=== PATIENT | female | born 1960 | race Caucasian/White ===

== ENCOUNTER 2017-10-14 20:41 | Inpatient (IN) | payer MEDICAID, OTHER ==
[~2017-10-14] VITALS: Ht 172.7 cm; Wt 107.0 kg
[2017-10-14] MEDS ORDERED: Morphine Sulfate 4mg/ml Inj IVP ONE (21:00)
[2017-10-14] MEDS ORDERED: Methocarbamol 750mg tab ORAL ONE (21:00)
--- NOTE | 2017-10-14 21:05 | Emergency Room Report ---
History of Present Illness General Chief Complaint: Lower Extremity Injury Source: Patient, EMS Present Illness HPI 57-year-old female presenting with left hip and left knee pain after fall Patient states she has had chronic left hip pain since July, states that she fell, went to [facility] who performed many tests. She was found to have incidental lesions in her bone. She is currently being worked up for multiple myeloma by her primary care doctor. Has not yet seen an oncologist. States that she has had chronic pain for the last couple weeks, she has given herself crutches due to the pain. She has been taking Motrin and Tylenol. States that today she slipped and fell on her buttocks. Now complaining of more pain. EMS got there palpation standing up but unable to bear weight on her left side. She got morphine and Zofran by EMS without any relief. Denies any numbness or tingling of her extremities, no saddle anesthesia, no urinary retention Allergies: Coded Allergies: No Known Allergies (Unverified , 10/14/17) Patient History Past Medical History: see triage record Past Surgical History: none Pertinent Family History: none Last Menstrual Period: n/a Reviewed Nursing Documentation: PMH: Agreed, PSxH: Agreed Nursing Documentation-PMH Past Medical History: No Stated History Review of Systems All Other Systems: negative except mentioned in HPI Physical Exam Vital Signs Date Time Temp Pulse Resp B/P (MAP) Pulse Ox O2 Delivery O2 Flow Rate FiO2 10/14/17 20:33 100 16 180/99 99 Room Air Sp02 EP Interpretation: reviewed, normal General Appearance: alert, GCS 15, non-toxic, mild distress Head: normocephalic, atraumatic Eyes: bilateral eye normal inspection, bilateral eye PERRL, bilateral eye EOMI ENT: normal ENT inspection, normal pharynx, normal voice, moist mucus membranes Neck: normal inspection, full range of motion, supple Respiratory: normal inspection, lungs clear, normal breath sounds, no respiratory distress, no retraction, no wheezing, speaking full sentences, chest symmetrical Cardiovascular #1: normal inspection, regular rate, rhythm, normal capillary refill Cardiovascular #2: 2+ radial (R), 2+ radial (L) Gastrointestinal: normal inspection, non tender, soft, non-distended, no guarding Musculoskeletal: other - L knee with no effusion, TTP, full range of motion, L hip TTP lateral aspect, limited ROM 2/2to pain. no limb rotation or shortening Neurologic: normal inspection, alert, oriented x3, responsive, motor strength/ tone normal, sensory intact, speech normal Psychiatric: normal inspection, judgement/insight normal, memory normal Skin: normal inspection, normal color, no rash, warm/dry, well hydrated, normal turgor Medical Decision Making Diagnostic Impression: Primary Impression: Left displaced femoral neck fracture Additional Impression: Intractable pain ER Course 57-year-old female with left hip pain, has been going on for an 3 months, exacerbation today after she fell history of multiple myeloma DDX: Contusion versus sciatica vs. fracture Plan: Pain control XR ER course: Patient reports improvement of pain Hip XR and CT showing displaced femoral neck fx - also concern for pathologic fx given multiple myeloma pulses intact notified orthopedics Dr Gudino Disposition: Patient is to be admitted to med surg D/W hospitalist Dr Soares Please note that this Emergency Department Report was dictated using [employer] plant maintenance mechanic technology software, occasionally this can lead to erroneous entry secondary to interpretation by the dictation equipment. Xray ordered: Left hip 3 view Indication: Pain EP Interpretation: Yes Interpretation: femoral neck fx Impression: femoral neck fx Electronically signed by Rich Stallings MD Xray: Left knee 3 view Indication: Pain EP Interpretation: Yes Interpretation: No dislocation, no soft tissue swelling, no fractures Impression: No acute disease Electronically signed by Rich Stallings MD Laboratory Tests Test 10/15/17 00:11 White Blood Count 15.0 K/UL (4.8-10.8) H Red Blood Count 3.99 M/UL (4.20-5.40) L Hemoglobin 12.8 G/DL (12.0-16.0) Hematocrit 36.5 % (37.0-47.0) L Mean Corpuscular Volume 92 FL (80-99) Mean Corpuscular Hemoglobin 32.0 PG (27.0-31.0) H Mean Corpuscular Hemoglobin Concent 34.9 G/DL (32.0-36.0) Red Cell Distribution Width 11.4 % (11.6-14.8) L Platelet Count 323 K/UL (150-450) Mean Platelet Volume 6.4 FL (6.5-10.1) L Neutrophils (%) (Auto) % (45.0-75.0) Lymphocytes (%) (Auto) % (20.0-45.0) Monocytes (%) (Auto) % (1.0-10.0) Eosinophils (%) (Auto) % (0.0-3.0) Basophils (%) (Auto) % (0.0-2.0) Prothrombin Time 10.2 SEC (9.30-11.50) Prothrombin Time INR 1.0 (0.9-1.1) PTT 25 SEC (23-33) Sodium Level 138 MMOL/L (136-145) Potassium Level 4.2 MMOL/L (3.5-5.1) Chloride Level 102 MMOL/L (98-107) Carbon Dioxide Level 23 MMOL/L (21-32) Anion Gap 13 mmol/L (5-15) Blood Urea Nitrogen 35 mg/dL (7-18) H Creatinine 1.4 MG/DL (0.55-1.30) H Estimate Glomerular Filtration Rate 39.0 mL/min (>60) Glucose Level 122 MG/DL (74-106) H Calcium Level 9.6 MG/DL (8.5-10.1) Total Bilirubin 0.4 MG/DL (0.2-1.0) Aspartate Amino Transferase (AST) 36 U/L (15-37) Alanine Aminotransferase (ALT) 41 U/L (12-78) Alkaline Phosphatase 93 U/L (46-116) Total Protein 8.3 G/DL (6.4-8.2) H Albumin 4.1 G/DL (3.4-5.0) Globulin 4.2 g/dL Albumin/Globulin Ratio 1.0 (1.0-2.7) CT/MRI/US Diagnostic Results CT/MRI/US Diagnostic Results : Imaging Test Ordered: CT hip Impression CT LEFT HIP: Displaced/angulated left femoral neck subcapital fracture concerning for pathologic fracture. Left femoral head/neck lucency concerning for neoplasm. Other scattered osseous lucencies, cannot exclude neoplasm/metastasis. Last Vital Signs Date Time Temp Pulse Resp B/P (MAP) Pulse Ox O2 Delivery O2 Flow Rate FiO2 10/14/17 20:33 100 16 180/99 99 Room Air Disposition: ADMITTED INPATIENT Condition: Serious Patient Instructions: Hip Pain Rich Stallings M.D. Oct 14, 2017 21:05
[2017-10-15] VITALS (7 sets, daily range): BP systolic 120–165; BP diastolic 65–83
[2017-10-15] MEDS ORDERED: Morphine Sulfate 4mg/ml Inj IVP ONE ×2 (00:15→00:45)
[2017-10-15] MEDS ORDERED: NORCO 5-325 TA1 EACH ORAL (00:34)
[2017-10-15] MEDS ORDERED: IBUPROFEN600 MG ORAL (00:34)
[2017-10-15] MEDS ORDERED: Ketorolac 30mg Inj IV ONE (00:45)
[2017-10-15 00:47] LABS: HEMATOCRIT 36.5 % (37.0-47.0); HEMOGLOBIN 12.8 G/DL (12.0-16.0); MEAN CORPUSCULAR VOLUME 92 FL (80-99); PLATELET COUNT 323 K/UL (150-450); RED BLOOD COUNT 3.99 M/UL (4.20-5.40); RED CELL DISTRIBUTION WIDTH 11.4 % (11.6-14.8)
[2017-10-15 01:00] LABS: ANION GAP 13 mmol/L (5-15); BLOOD UREA NITROGEN 35 mg/dL (7-18); CALCIUM 9.6 MG/DL (8.5-10.1); CARBON DIOXIDE 23 MMOL/L (21-32); CHLORIDE 102 MMOL/L (98-107); CREATININE 1.4 MG/DL (0.55-1.30); POTASSIUM 4.2 MMOL/L (3.5-5.1); SODIUM 138 MMOL/L (136-145)
[2017-10-15 01:05] LABS: ALANINE AMINOTRANSFERASE 41 U/L (12-78); ALBUMIN 4.1 G/DL (3.4-5.0); ALKALINE PHOSPHATASE 93 U/L (46-116); ASPARTATE AMINO TRANSFERASE 36 U/L (15-37); BILIRUBIN,TOTAL 0.4 MG/DL (0.2-1.0)
[2017-10-15 08:16] LABS: HEMATOCRIT 37.4 % (37.0-47.0); HEMOGLOBIN 12.3 G/DL (12.0-16.0); MEAN CORPUSCULAR VOLUME 93 FL (80-99); PLATELET COUNT 318 K/UL (150-450); RED BLOOD COUNT 4.01 M/UL (4.20-5.40); RED CELL DISTRIBUTION WIDTH 11.8 % (11.6-14.8); WHITE BLOOD COUNT 11.5 K/UL (4.8-10.8)
[2017-10-15 09:03] LABS: % IRON SATURATION 19 % (15-50); IRON 49 ug/dL (50-175); TOTAL IRON BINDING CAPACITY 259 ug/dL (250-450)
[2017-10-15 09:30] LABS: ALANINE AMINOTRANSFERASE 39 U/L (12-78); ALBUMIN/GLOBULIN RATIO 1.2 (1.0-2.7); ALKALINE PHOSPHATASE 102 U/L (46-116); ANION GAP 10 mmol/L (5-15); ASPARTATE AMINO TRANSFERASE 28 U/L (15-37); BILIRUBIN,TOTAL 0.3 MG/DL (0.2-1.0); BLOOD UREA NITROGEN 30 mg/dL (7-18); CALCIUM 8.8 MG/DL (8.5-10.1); CARBON DIOXIDE 25 MMOL/L (21-32); CHLORIDE 105 MMOL/L (98-107); CREATININE 1.1 MG/DL (0.55-1.30); POTASSIUM 4.1 MMOL/L (3.5-5.1); SODIUM 140 MMOL/L (136-145)
--- NOTE | 2017-10-15 09:44 | Diagnostic Imaging Report ---
Indication: Hip pain Technique: continuous helical imaging in the transaxial plane was performed from the iliac crests to the pubic symphysis with attention to the left hip. Coronal 2-D reformatted images were also generated. Study obtained in a Siemens Sensation [address] total DLP: 1988 mGycm CTD/vol: 0.25, 29.19 mGy Comparison: None Findings: There is abnormal lytic focus within the left femoral neck associated with pathologic intracapsular fracture of the femoral neck. Fracture is impacted. Bones are diffusely osteopenic as well. There is soft tissue swelling. IMPRESSION: Acute left femoral neck fracture. The fracture appears pathologic as there is a irregular lytic lesion involving the femoral head and neck. [facility] has communicated the preliminary results to the Emergency Department. Their findings are largely concordant with this report. The CT scanner at [facility] is accredited by the [employer] and the scans are performed using dose optimization techniques as appropriate to a performed exam including Automatic Exposure control.
[2017-10-15] MEDS: Heparin 5000 units/ml inj SUBQ SCH ×2 (09:55→21:00)
--- NOTE | 2017-10-15 10:52 | Diagnostic Imaging Report ---
Indication: pain Findings: Single AP view of the pelvis was performed. There is an acute fracture involving the left femoral neck. This is further evaluated on CT. Bones are osteopenic. IMPRESSION: Current study limited as obtained. Acute left hip fracture
--- NOTE | 2017-10-15 11:30 | Diagnostic Imaging Report ---
Indication: Pain 3 views of the left knee were obtained. Findings: Bones are osteopenic. No obvious fracture or malalignment identified. No definite joint effusion is identified. IMPRESSION: No acute injury identified.
--- NOTE | 2017-10-15 11:31 | Diagnostic Imaging Report ---
Indications: hip pain Findings: Two views of the left hip were obtained. There is an acute fracture of the left femoral neck with slight impaction. The femoral neck is abnormal in appearance with irregular lucency noted. There is also some lucency and abnormal mineralization of the femoral head itself. Findings suspicious for a pathologic fracture. IMPRESSION: Acute left femoral neck fracture likely pathologic. Underlying irregular lucency is suspicious for metastatic neoplasm or other infiltrative process.
--- NOTE | 2017-10-15 17:51 | History & Physical ---
History and Physical History & Physicial JOB ID: [id number] Eros Rodrigues Oct 15, 2017 17:51
--- NOTE | 2017-10-15 18:51 | Cardiac Electrophysiology PN ---
Subjective Subjective [id number]. No HTN, DM, PR or CAD or CHF. ECG Normal. OK to proceed with ORIF. Objective Last 24 Hour Vital Signs Date Time Temp Pulse Resp B/P (MAP) Pulse Ox O2 Delivery O2 Flow Rate FiO2 10/15/17 16:00 98.7 80 18 120/65 97 10/15/17 12:01 97.0 76 18 139/71 98 Room Air 10/15/17 12:00 97.0 76 18 139/71 98 10/15/17 04:00 97.8 86 19 147/73 94 10/15/17 01:31 98.3 77 18 164/83 97 Room Air 10/15/17 01:25 98.3 77 18 164/83 97 Room Air 10/15/17 00:25 98.3 80 18 165/83 95 Room Air 10/14/17 20:33 100 16 180/99 99 Room Air Intake and Output 10/14/17 10/15/17 19:00 07:00 Intake Total 450 ml Balance 450 ml Intake Oral 0 ml IV Total 450 ml Laboratory Tests Test 10/15/17 00:11 10/15/17 07:50 White Blood Count 15.0 K/UL (4.8-10.8) H 11.5 K/UL (4.8-10.8) H Red Blood Count 3.99 M/UL (4.20-5.40) L 4.01 M/UL (4.20-5.40) L Hemoglobin 12.8 G/DL (12.0-16.0) 12.3 G/DL (12.0-16.0) Hematocrit 36.5 % (37.0-47.0) L 37.4 % (37.0-47.0) Mean Corpuscular Volume 92 FL (80-99) 93 FL (80-99) Mean Corpuscular Hemoglobin 32.0 PG (27.0-31.0) H 30.8 PG (27.0-31.0) Mean Corpuscular Hemoglobin Concent 34.9 G/DL (32.0-36.0) 33.0 G/DL (32.0-36.0) Red Cell Distribution Width 11.4 % (11.6-14.8) L 11.8 % (11.6-14.8) Platelet Count 323 K/UL (150-450) 318 K/UL (150-450) Mean Platelet Volume 6.4 FL (6.5-10.1) L 6.8 FL (6.5-10.1) Neutrophils (%) (Auto) % (45.0-75.0) % (45.0-75.0) Lymphocytes (%) (Auto) % (20.0-45.0) % (20.0-45.0) Monocytes (%) (Auto) % (1.0-10.0) % (1.0-10.0) Eosinophils (%) (Auto) % (0.0-3.0) % (0.0-3.0) Basophils (%) (Auto) % (0.0-2.0) % (0.0-2.0) Prothrombin Time 10.2 SEC (9.30-11.50) 10.4 SEC (9.30-11.50) Prothromb Time International Ratio 1.0 (0.9-1.1) 1.0 (0.9-1.1) Activated Partial Thromboplast Time 25 SEC (23-33) Sodium Level 138 MMOL/L (136-145) 140 MMOL/L (136-145) Potassium Level 4.2 MMOL/L (3.5-5.1) 4.1 MMOL/L (3.5-5.1) Chloride Level 102 MMOL/L (98-107) 105 MMOL/L (98-107) Carbon Dioxide Level 23 MMOL/L (21-32) 25 MMOL/L (21-32) Anion Gap 13 mmol/L (5-15) 10 mmol/L (5-15) Blood Urea Nitrogen 35 mg/dL (7-18) H 30 mg/dL (7-18) H Creatinine 1.4 MG/DL (0.55-1.30) H 1.1 MG/DL (0.55-1.30) Estimat Glomerular Filtration Rate 39.0 mL/min (>60) 51.6 mL/min (>60) Glucose Level 122 MG/DL (74-106) H 128 MG/DL (74-106) H Calcium Level 9.6 MG/DL (8.5-10.1) 8.8 MG/DL (8.5-10.1) Total Bilirubin 0.4 MG/DL (0.2-1.0) 0.3 MG/DL (0.2-1.0) Aspartate Amino Transf (AST/SGOT) 36 U/L (15-37) 28 U/L (15-37) Alanine Aminotransferase (ALT/SGPT) 41 U/L (12-78) 39 U/L (12-78) Alkaline Phosphatase 93 U/L (46-116) 102 U/L (46-116) Total Protein 8.3 G/DL (6.4-8.2) H 7.4 G/DL (6.4-8.2) Albumin 4.1 G/DL (3.4-5.0) 4.0 G/DL (3.4-5.0) Globulin 4.2 g/dL 3.4 g/dL Albumin/Globulin Ratio 1.0 (1.0-2.7) Pending Differential Total Cells Counted 100 Neutrophils % (Manual) 83 % (45-75) H Lymphocytes % (Manual) 8 % (20-45) L Monocytes % (Manual) 9 % (1-10) Eosinophils % (Manual) 0 % (0-3) Basophils % (Manual) 0 % (0-2) Band Neutrophils 0 % (0-8) Platelet Estimate Adequate Platelet Morphology Normal Red Blood Cell Morphology Normal Reticulocyte Count 0.7 % (0.0-2.0) Uric Acid 5.7 MG/DL (2.6-7.2) Iron Level 49 ug/dL (50-175) L Total Iron Binding Capacity 259 ug/dL (250-450) Percent Iron Saturation 19 % (15-50) Unsaturated Iron Binding 210 ug/dL (112-346) Total Protein (PEP) Pending Albumin (PEP) Pending Globulin (PEP) Pending [id number] Pending [id number] Pending Beta Globulins Pending Beta Gamma Globulin Pending PEP Abnormal Protein Bands Pending Protein Electrophoresis Interpret Pending Folate 11.9 NG/ML (8.6-58.9) Immunoglobulin G Pending Immunoglobulin A Pending Immunoglobulin M Pending AMBER BRUCE Oct 15, 2017 18:50
[2017-10-16] VITALS (15 sets, daily range): BP systolic 111–149; BP diastolic 62–90
--- NOTE | 2017-10-16 04:30 | Consultation ---
DATE OF CONSULTATION: 10/15/2017 CARDIOLOGY CONSULTATION CONSULTING PHYSICIAN: Jesus Yu M.D. REFERRING PHYSICIAN: Eros Rodrigues M.D. REASON FOR CONSULTATION: Preoperative clearance. HISTORY OF PRESENT ILLNESS: The patient is a 57-year-old lady, who presents to the emergency room with left hip and left knee pain after a fall. The patient has had chronic left hip pain since July, however, she fell, went to [facility] and performed many tests. The patient is currently being worked up for multiple myeloma by her primary care physician, but has has not seen an oncologist. She has been taking Motrin and Tylenol. The patient slipped and fell on her buttocks complaining of severe pain. The patient was brought in by paramedics and was found to have left displaced femoral neck fracture. The patient was admitted and a Cardiology consultation was requested for further evaluation and preoperative clearance. PAST MEDICAL HISTORY: As mentioned above. SOCIAL HISTORY: Lives at home. Does not smoke or drink alcohol. FAMILY HISTORY: Noncontributory. REVIEW OF SYSTEMS: Review of systems was performed and was negative other than what was mentioned in the history of present illness. PHYSICAL EXAMINATION: VITAL SIGNS: Blood pressure is 120/65, pulse is 80, respirations 18, and she is afebrile. HEAD AND NECK: Showed no JVD. LUNGS: Clear. CARDIOVASCULAR: Shows regular S1 and S2 with no gallop. ABDOMEN: Soft. EXTREMITIES: No pitting edema. LABORATORY DATA: White count 11.5, hemoglobin 12.2, hematocrit 37.4, and platelet count of 318. Sodium 140, potassium 4.1, BUN of 30, creatine 1.1, and glucose of 128. INR is 1. ASSESSMENT AND PLAN: Status post fall and hip fracture without syncope. This could be fracture as the patient has possibly multiple myeloma. Further evaluation by Dr. Rodrigues. However, the patient denies any prior myocardial infarction or coronary artery disease or congestive heart failure. The EKG is completely normal. We will order an echocardiogram, however, clinically, the patient is stable from cardiac standpoint to proceed with hip surgery. Thank you very much, Dr. Rodrigues, for allowing me to participate in the care of this patient. Please do not hesitate to contact me for any questions regarding my evaluation. Jesus Yu M.D. DR: Petar JOB#: [id number] CC:
[2017-10-16] MEDS ORDERED: Morphine Sulfate PF 10 ML ONE (07:41)
[2017-10-16] MEDS ORDERED: Bupivacaine 0.25% Inj 30ml INJ ONE (07:42)
[2017-10-16] MEDS ORDERED: Bacitracin 50000 Units Vial ONE (07:42)
[2017-10-16] MEDS ORDERED: NeoSporin Gu Irrig 1ml Amp IRRIG ONE (07:42)
[2017-10-16] MEDS ORDERED: Kenalog-40 1ml Vial ONE (07:42)
[2017-10-16] MEDS: Heparin 5000 units/ml inj SUBQ SCH (08:54)
[2017-10-16] MEDS ORDERED: Tranexamic Acid 500 MG in NS 55 ML IVPB ONE (09:30)
--- NOTE | 2017-10-16 09:38 | Pre-Procedure Note/Attestation ---
Pre-Procedure Note/Attestation Complete Prior to Procedure Planned Procedure: left Procedure Narrative: Left hip hemiarthoplasty Indications for Procedure Pre-Operative Diagnosis: Left hip pathologic femoral neck fracture Attestation I attest that I discussed the nature of the procedure; its benefits; risks and complications; and alternatives (and the risks and benefits of such alternatives ), prior to the procedure, with the patient (or the patient's legal pharmaceutical sales representative). I attest that, if there was a reasonable possibility of needing a blood transfusion, the patient (or the patient's legal pharmaceutical sales representative) was given the [facility] standardized written summary, pursuant to the Saturnino Moe Blood Safety Act ([place] Health and Safety Code # 1645, as amended). I attest that I re-evaluated the patient just prior to the surgery and that there has been no change in the patient's H&P, except as documented below: ALFREDO TORRES Oct 16, 2017 09:38
[2017-10-16] MEDS: Depo-Medrol 40mg Inj IARTIC ONE ×2 (09:44→13:11)
[2017-10-16] MEDS ORDERED: oxyCODONE 5mg IR tab ORAL PRN (10:00)
[2017-10-16] MEDS ORDERED: Morphine Sulfate 4mg/ml Inj IVP PRN (10:00)
[2017-10-16] MEDS ORDERED: Sterile Water Irrig 1000ml IRRIG ONE (10:15)
[2017-10-16] MEDS ORDERED: Ketorolac 30mg Inj ONE (10:15)
[2017-10-16] MEDS ORDERED: LR 1000ml ONE (10:15)
[2017-10-16] MEDS ORDERED: Glycopyrrolate 0.2mg/ml 1ml Vial ONE (10:15)
[2017-10-16] MEDS ORDERED: Propofol 200mg/20ml IV ONE (10:15)
[2017-10-16] MEDS ORDERED: Midazolam 2mg/2ml Inj ONE (10:15)
[2017-10-16] MEDS ORDERED: fentaNYL 100 mcg/2 mL IV ONE (10:15)
[2017-10-16] MEDS ORDERED: Zemuron 50mg/5ml Inj IV ONE (10:15)
[2017-10-16] MEDS ORDERED: NS Irrig 1000ml ONE (10:15)
[2017-10-16] MEDS ORDERED: Metoclopramide 10mg/2ml Inj ONE (10:15)
[2017-10-16] MEDS ORDERED: Succinylcholine 20mg/ml 10ml vial ONE (10:15)
[2017-10-16] MEDS ORDERED: LR 1000ml 1,000 ML IVLG SCH (11:33)
--- NOTE | 2017-10-16 11:37 | Anethesia Preoperative Eval ---
Anesthesia Pre-op PMH/ROS General Date of Evaluation: Oct 16, 2017 Time of Evaluation: 10:15 Anesthesiologist: Lam ASA Score: ASA 2 Mallampati Score Class I : Soft palate, uvula, fauces, pillars visible Class II: Soft palate, uvula, fauces visible Class III: Soft palate, base of uvula visible Class IV: Only hard plate visible Mallampati Classification: Class I Surgeon: Shahab Diagnosis: Left Femoral nek fracture Surgical Procedure: Left Hemirthroplasty Anesthesia History: none Family History: no anesthesia problems Allergies: Coded Allergies: No Known Allergies (Unverified , 10/14/17) Medications: see eMAR Anesthesia Pre-op Phys. Exam Physician Exam Last Vital Signs Date Time Temp Pulse Resp B/P (MAP) Pulse Ox O2 Delivery O2 Flow Rate FiO2 10/16/17 08:28 97.8 81 18 111/62 100 Room Air 10/16/17 01:17 2.0 Constitutional: NAD Neurologic: CN 2-12 intact Cardiovascular: RRR Respiratory: CTA Gastrointestinal: S/NT/ND Airway Exam Mallampati Score: Class II MO: full ROM: full Teeth: intact Anesthesia Pre-op A/P Risk Assessment & Plan Plan: GA Status Change Before Surgery: No Pre-Antibiotics Drug: Ancef Given Within 1 Hr of Incision: Yes Time Given: 11:00 Angel Fritz M.D. Oct 16, 2017 11:37
--- NOTE | 2017-10-16 11:39 | 48 Hour Post Anesthesia Eval ---
Post Anesthesia Evaluation Procedure: Left Hemiarthroplasty Date of Evaluation: Oct 18, 2017 Time of Evaluation: 10:00 Blood Pressure Systolic: 121 0: 76 Pulse Rate: 96 Respiratory Rate: 18 Temperature (Fahrenheit): 98.2 O2 Sat by Pulse Oximetry: 96 Airway: patent Nausea: No Vomiting: No If pain is > 6 Comment: 0 Hydration Status: adequate Mental Status/LOC: patient returned to baseline Follow-up care needed: patient intructions given Angel Fritz M.D. Oct 16, 2017 11:39
--- NOTE | 2017-10-16 11:42 | Immediate Post-Op Evaluation ---
Immediate Post-Op Evalulation Immediate Post-Op Evalulation Procedure: Left Hemiarthroplasty Date of Evaluation: Oct 16, 2017 Time of Evaluation: 14:00 IV Fluids: 1000 Blood Products: 0 Estimated Blood Loss: 200 Urinary Output: 1000 Blood Pressure Systolic: 121 Blood Pressure Diastolic: 63 Pulse Rate: 96 Respiratory Rate: 21 O2 Sat by Pulse Oximetry: 96 Temperature (Fahrenheit): 97.5 Pain Score (1-10): 0 Nausea: No Vomiting: No Patient Status: awake, patent, extubated Hydration Status: adequate Drug: Ancef Given Within 1 Hr of Incision: Yes Time Given: 11:00 Angel Fritz M.D. Oct 16, 2017 11:42
[2017-10-16] MEDS ORDERED: fentaNYL 100 mcg/2 mL IV PRN (11:45)
[2017-10-16] MEDS ORDERED: DiphenhydrAMINE 50mg/ml Inj IVP PRN (11:45)
[2017-10-16] MEDS ORDERED: Midazolam 2mg/2ml Inj IVP PRN (11:45)
[2017-10-16] MEDS ORDERED: Metoclopramide 10mg/2ml Inj IVP PRN (11:45)
[2017-10-16] MEDS ORDERED: Morphine Sulfate 2mg/ml Inj IVP PRN (11:45)
--- NOTE | 2017-10-16 12:58 | Cardiac Electrophysiology PN ---
Assessment/Plan Assessment/Plan 1. Status post fall and hip fracture without syncope. This could be pathologic fracture as the patient has possibly multiple myeloma. Patient denies any prior myocardial infarction or coronary artery disease or congestive heart failure. The EKG is completely normal. Clinically, the patient is stable from cardiac standpoint to proceed with hip surgery. 2. Possible MM. Follow uop Dr Soares. Subjective Subjective Comfortable scheduled for ORIF today.. Objective Last 24 Hour Vital Signs Date Time Temp Pulse Resp B/P (MAP) Pulse Ox O2 Delivery O2 Flow Rate FiO2 10/16/17 11:42 96 21 96 10/16/17 11:39 96 18 96 10/16/17 08:28 97.8 81 18 111/62 100 Room Air 10/16/17 01:17 97.6 86 18 112/68 97 Nasal Cannula 2.0 10/15/17 20:08 97.5 77 18 120/70 96 Nasal Cannula 2.0 10/15/17 16:00 98.7 80 18 120/65 97 Intake and Output 10/15/17 10/16/17 19:00 07:00 Intake Total 1650 ml 1800 ml Output Total 550 ml Balance 1650 ml 1250 ml Intake Oral 150 ml IV Total 1500 ml 1800 ml Output Urine Total 550 ml # Voids 2 2 Objective HEAD AND NECK: Showed no JVD. LUNGS: Clear. CARDIOVASCULAR: Shows regular S1 and S2 with no gallop. ABDOMEN: Soft. EXTREMITIES: No pitting edema. AMBER BRUCE Oct 16, 2017 12:58
[2017-10-16] MEDS ORDERED: Duramorph PF 10mg/10ml amp EPIDUR ONE (13:11)
[2017-10-16] MEDS: Hydromorphone 0.5mg/0.5ml inj IVP PRN ×2 (14:06→14:25)
--- NOTE | 2017-10-16 14:45 | Consultation ---
DATE OF CONSULTATION: 10/15/2017 ORTHOPEDIC CONSULTATION REQUESTING PHYSICIAN: Eros Rodrigues M.D. DIAGNOSIS: Left pathologic femoral neck fracture. BACKGROUND: The patient is a 57-year-old woman who has had left hip pain since July. She has had progressive symptoms and an extensive workup. Reportedly, she is being evaluated for multiple myeloma and has an Oncology appointment pending. The day prior to admission, she twisted and felt a snapping pain in the left hip. The left hip pain since July was intensified and she was not able to walk. She was brought to the hospital. ALLERGIES: She has no known drug allergies. REVIEW OF SYSTEMS: A 14-point review of systems was negative. PHYSICAL EXAMINATION: GENERAL: She is in moderate distress because of left hip pain. No provocative testing was performed in the left lower extremity. Distal neurovascular examination of the left lower extremity is intact. RADIOGRAPHS: AP pelvis and left hip along with CT scan reveals a displaced pathologic fracture through the femoral neck. There are multiple lesions throughout the femoral neck and femoral head. There were no large lesions of the shaft and readily identified. ASSESSMENT AND PLAN: The patient is a 57-year-old woman with presumptive multiple myeloma with metastatic disease to the left hip. I have discussed the pathologic femoral neck fracture. I have recommended hip hemiarthroplasty. She understands all associated risks. We will proceed to the operating room when available. Thank you for the opportunity to consult. Angel Gudino M.D. DR: CHARLOTTE JOB#: [id number] CC:
[2017-10-16] MEDS: D5 1/2NS w/KCl 20mEq 1,000 ML IV SCH (15:57)
[2017-10-16] MEDS: ceFAZolin sod 2 GM in D5W 110 ML IV SCH ×2 (15:58→21:49)
[2017-10-16] MEDS: Docusate 100mg cap ORAL SCH (18:25)
--- NOTE | 2017-10-16 19:38 | General Progress Note ---
Assessment/Plan Assessment/Plan # Multiple myeloma --> requires outpatient followyp, requires treatment, patients can generally do well especially since she is treatment benign --> f/u with oncology, likely will start either RV or RVD (revlimid - velcade - dexamethason) or a similar combination to induce a deep hematologicaly/ cytogenetic/molecular response --> will need zometa as well as outpatient given bony metastasis --> spep is pending and immunoglobulins are generally wnl # Pathologic left hip fracture s/p repair # Anemia of chronic disease, mild # HTN Subjective Constitutional: Denies: no symptoms, chills, diaphoresis, fever, malaise, weakness, other Respiratory: Denies: no symptoms, cough, orthopnea, shortness of breath, SOB with excertion, SOB at rest, sputum, stridor, wheezing, other Gastrointestinal/Abdominal: Denies: no symptoms, abdomen distended, abdominal pain, black stools, tarry stools, blood in stool, constipated, diarrhea, difficulty swallowing, nausea, poor appetite, poor fluid intake, rectal bleeding , vomiting, other Genitourinary: Denies: no symptoms, burning, discharge, frequency, flank pain, hematuria, incontinence, pain, urgency, other Neurologic/Psychiatric: Denies: no symptoms, anxiety, depressed, emotional problems, headache, numbness, paresthesia, pre-existing deficit, seizure, tingling, tremors, weakness, other Endocrine: Denies: no symptoms, excessive sweating, flushing, intolerance to cold, intolerance to heat, increased hunger, increased thirst, increased urine, unexplained weight gain, unexplained weight loss, other Hematologic/Lymphatic: Denies: no symptoms, anemia, easy bleeding, easy bruising, other Allergies: Coded Allergies: No Known Allergies (Unverified , 10/14/17) Subjective no events, s/p left hemiarthroplasty Objective Last 24 Hour Vital Signs Date Time Temp Pulse Resp B/P (MAP) Pulse Ox O2 Delivery O2 Flow Rate FiO2 10/16/17 16:00 97.5 77 18 149/78 98 10/16/17 15:36 98.0 82 20 147/76 98 10/16/17 14:59 98.3 10/16/17 14:45 98.3 65 15 137/75 96 Nasal Cannula 3.0 10/16/17 14:40 62 13 138/77 96 Nasal Cannula 3.0 10/16/17 14:30 69 14 127/81 96 Nasal Cannula 3.0 10/16/17 14:25 65 15 133/80 100 Nasal Cannula 3.0 10/16/17 14:15 68 13 142/77 100 Nasal Cannula 3.0 10/16/17 14:05 72 16 145/83 99 Nasal Cannula 3.0 10/16/17 13:57 78 13 142/90 99 Nasal Cannula 3.0 10/16/17 13:50 86 17 141/85 100 Simple Mask 6.0 10/16/17 13:45 82 15 138/83 100 Simple Mask 6.0 10/16/17 13:40 97.8 79 14 133/79 100 Simple Mask 6.0 10/16/17 11:42 96 21 96 10/16/17 11:39 96 18 96 10/16/17 08:28 97.8 81 18 111/62 100 Room Air 10/16/17 01:17 97.6 86 18 112/68 97 Nasal Cannula 2.0 10/15/17 20:08 97.5 77 18 120/70 96 Nasal Cannula 2.0 Intake and Output 10/15/17 10/16/17 19:00 07:00 Intake Total 1650 ml 1800 ml Output Total 550 ml Balance 1650 ml 1250 ml Intake Oral 150 ml IV Total 1500 ml 1800 ml Output Urine Total 550 ml # Voids 2 2 Height (Feet): 5 Height (Inches): 8.00 Weight (Pounds): 236 General Appearance: no apparent distress EENT: normal ENT inspection Neck: supple Cardiovascular: normal rate Respiratory/Chest: lungs clear Abdomen: no organomegaly Extremities: non-tender Edema: no edema noted Leg (L), no edema noted Leg (R) Edema: mild edema Neurologic: alert Skin: warm/dry Eros Rodrigues Oct 16, 2017 19:38
[2017-10-16] MEDS: oxyCONTIN 20mg tab ORAL SCH (21:36)
--- NOTE | 2017-10-16 23:46 | Operative Note - Dictated ---
DATE OF OPERATION: 10/16/2017 SURGEON: Angel Gudino M.D. ([facility] [place]) TECHNICAL ASSOCIATE: None. ANESTHESIA: General plus local. COMPLICATIONS: None. ANTIBIOTICS: Ancef. PREOPERATIVE DIAGNOSIS: Left femoral neck pathologic femur fracture. POSTOPERATIVE DIAGNOSIS: Left femoral neck pathologic femur fracture. PROCEDURE PERFORMED: Left hip hemiarthroplasty using a cemented Profemur Xm femoral stem size #0 with a canal centralizer and a 28 x 44 bipolar head with a -3.5 neck length and a cobalt chromium modular neck short/strength. BACKGROUND: The patient is a 57-year-old woman who sustained a pathologic fracture of her left femoral neck. It is supposedly secondary to multiple myeloma. All risks, benefits, and alternatives to surgical intervention were discussed in great detail. Risks included, but were not limited to, bleeding, infection, neurovascular injury, need for additional surgical intervention, failure of pain relief, arthrofibrosis, complications of anesthesia, blood clots, stroke, heart attack, and potentially . She understood these risks, amongst others including leg length discrepancy, fracture, and dislocation and consent was signed. PROCEDURE IN DETAIL: The patient was brought into the operating room and placed supine on the operating table. The left hip was correctly verified for surgical site and prepped and draped in standard sterile fashion. A posterior incision was created and hemostasis maintained using electrocautery. The fascia of the gluteus musculature was then incised in line with the incision. Blunt dissection was carried down to the conjoined tendon, which was readily identified and detached as distally as possible for later reattachment. The capsule was identified and opened in T-like fashion. The fracture hematoma was cleared. There was collapsed bone and significant bone loss at the junction of the femoral neck and femoral head. The head and all debris were removed in its entirety and sent to the laboratory for pathologic evaluation. The box osteotome was used to gain starting position after appropriate retractors were placed. Sequential reaming and broaching revealed appropriate fit and fill with a size #0. She had a very narrow canal. Trial with a #0 implant, neutral short straight neck, and 28 x 44 mm head (as measured from the chilkoot head) revealed clinically equal leg lengths, and no purging or dislocation at 90 degrees hip flexion, 90 degrees hip flexion with 30 degrees internal rotation, position of sleep, position of sleep with 80 degrees internal rotation, and 10 degrees external rotation with posterior pressure on the buttock. Radiographs confirmed appropriate offset and skeletal leg lengths. A canal restrictor was secured into position and pulsatile lavage was used to cleanse the bone. It was then thoroughly dried. The real stem was cemented into position and the modular neck and bipolar femoral head were secured into position. The hip was relocated and there was no change in final stability or clinical or radiographic leg lengths. Copious irrigation was utilized and finger sweep revealed no retained foreign body or debris. The surrounding tissues were injected with 40 mL 0.25% Marcaine mixed with Toradol and Decadron. The capsule was reapproximated using #1 Vicryl and more superficial tissues with #0 and 2-0 Vicryl. The conjoint tendon was reapproximated to the abductor tendon. Again copious irrigation was utilized prior to fascial closure. Subcuticular closure was accomplished using Monocryl. Steri-Strips were used over Mastisol. Dry sterile dressing was applied. A sterile dressing was secured and she was placed in supine position. Her leg lengths were clinically equal. She tolerated the procedure well. There were no complications. I attest that I performed the entire operation. She was transferred to recovery in good condition. Angel Gudino M.D. DR: Jose Manuel JOB#: [id number] CC: RENETTA
[2017-10-17] VITALS: BP 127/73
[2017-10-17 04:34] VITALS: BP 120/71
[2017-10-17] MEDS: D5 1/2NS w/KCl 20mEq 1,000 ML IV SCH ×2 (05:20→07:53)
[2017-10-17 08:20] VITALS: BP 123/74
[2017-10-17] MEDS: celeBREX 200mg Cap **SURGERY PATIENTS ONLY ORAL SCH (09:30)
--- NOTE | 2017-10-17 09:30 | Cardiac Electrophysiology PN ---
Assessment/Plan Assessment/Plan 1. Status post fall and hip fracture without syncope. This could be pathologic fracture as the patient has possibly multiple myeloma. Patient denies any prior myocardial infarction or coronary artery disease or congestive heart failure. The EKG is completely normal. Tolerated the ORIF well. 2. Possible MM. Follow uop Dr Soares. Subjective Subjective S/P Left hip ORIF yesterday with no cardiac issues. Objective Last 24 Hour Vital Signs Date Time Temp Pulse Resp B/P (MAP) Pulse Ox O2 Delivery O2 Flow Rate FiO2 10/17/17 08:20 98.3 83 20 123/74 96 Nasal Cannula 2.0 10/17/17 04:34 98.3 85 17 120/71 96 Nasal Cannula 2.0 10/17/17 00:00 Nasal Cannula 3.0 10/17/17 00:00 98.0 83 18 127/73 96 Nasal Cannula 3.0 10/16/17 20:00 Nasal Cannula 3.0 10/16/17 20:00 98.3 95 18 123/78 96 Nasal Cannula 3.0 10/16/17 16:00 97.5 77 18 149/78 98 10/16/17 15:36 98.0 82 20 147/76 98 10/16/17 14:59 98.3 10/16/17 14:45 98.3 65 15 137/75 96 Nasal Cannula 3.0 10/16/17 14:40 62 13 138/77 96 Nasal Cannula 3.0 10/16/17 14:30 69 14 127/81 96 Nasal Cannula 3.0 10/16/17 14:25 65 15 133/80 100 Nasal Cannula 3.0 10/16/17 14:15 68 13 142/77 100 Nasal Cannula 3.0 10/16/17 14:05 72 16 145/83 99 Nasal Cannula 3.0 10/16/17 13:57 78 13 142/90 99 Nasal Cannula 3.0 10/16/17 13:50 86 17 141/85 100 Simple Mask 6.0 10/16/17 13:45 82 15 138/83 100 Simple Mask 6.0 10/16/17 13:40 97.8 79 14 133/79 100 Simple Mask 6.0 10/16/17 11:42 96 21 96 10/16/17 11:39 96 18 96 Intake and Output 10/16/17 10/17/17 19:00 07:00 Intake Total 1435 ml 1425 ml Output Total 1000 ml 1500 ml Balance 435 ml -75 ml Intake Oral 600 ml IV Total 1435 ml 825 ml Output Urine Total 800 ml 1500 ml Estimated Blood Loss 200 ml Objective HEAD AND NECK: Showed no JVD. LUNGS: Clear. CARDIOVASCULAR: Shows regular S1 and S2 with no gallop. ABDOMEN: Soft. EXTREMITIES: No pitting edema. AMBER BRUCE Oct 17, 2017 09:30
[2017-10-17] MEDS: oxyCONTIN 20mg tab ORAL SCH ×2 (09:31→19:58)
[2017-10-17] MEDS: Docusate 100mg cap ORAL SCH ×3 (09:32→17:59)
[2017-10-17] MEDS: Enoxaparin 40mg Inj SUBQ SCH (09:33)
--- NOTE | 2017-10-17 11:25 | Diagnostic Imaging Report ---
Indication: Postop Technique: XRAY Pelvis 1v Comparison: 10/15/2017 Findings: Patient is status post left hip arthroplasty. No evidence of hardware-related complication. Lucency of the greater trochanter likely related to a lytic lesion seen on concurrent CT. Some subcutaneous gas is noted, likely related to recent surgical intervention. Bowel gas pattern is not overtly obstructive. Symphysis pubis and sacroiliac joints maintained. Impression: Left hip hemiarthroplasty. No evidence of hardware related complications. Lucency of the left greater trochanter likely related to a lytic lesion seen on concurrent CT
--- NOTE | 2017-10-17 11:27 | Diagnostic Imaging Report ---
Indication: Intraoperative Technique: 3 views of the left hip taken during left hip hemiarthroplasty Comparison: Earlier the same day Findings: Images show interval left hip hemiarthroplasty. The lucency noted in the left greater trochanter not as well appreciated on these views. There is mild subcutaneous emphysema related to surgical intervention. No hardware related complication is appreciated. No additional acute fracture is seen. Impression: Images from left hip hemiarthroplasty surgery. No evidence of hardware-related complication. No new fracture.
[2017-10-17 12:00] VITALS: BP 144/85
[2017-10-17 16:00] VITALS: BP 129/78
--- NOTE | 2017-10-17 18:18 | Brief Operative Note ---
Immediate Post Operative Note Operative Note Pre-op Diagnosis: Left hip pathologic femoral neck fracture Procedure: left hip hemiarthroplasty Post-op Diagnosis: Left hip pathologic femoral neck fracture Post-op Diagnosis: same as pre-op Findings: consistent w/pre-op dx studies Surgeon: Shahab Anesthesia: general, local Specimen: yes Complications: none Condition: stable Fluids: 200 ml Estimated Blood Loss: volume - 200 cc Drains: none Implant(s) used?: Yes ALFREDO TORRES Oct 17, 2017 18:18
--- NOTE | 2017-10-17 18:20 | Orthopedic Progress Note ---
Orthopedic - Progress Note Subjective Symptoms: c/o post-op hip pain Additional Comments Mild left hip pain POD 1 left hip hemiarthroplasty Objective Vital Signs Last 24 Hour Vital Signs Date Time Temp Pulse Resp B/P (MAP) Pulse Ox O2 Delivery O2 Flow Rate FiO2 10/17/17 16:00 98.5 86 19 129/78 95 Room Air 10/17/17 12:00 97.8 83 19 144/85 96 Nasal Cannula 2.0 10/17/17 08:20 98.3 83 20 123/74 96 Nasal Cannula 2.0 10/17/17 04:34 98.3 85 17 120/71 96 Nasal Cannula 2.0 10/17/17 00:00 Nasal Cannula 3.0 10/17/17 00:00 98.0 83 18 127/73 96 Nasal Cannula 3.0 10/16/17 20:00 Nasal Cannula 3.0 10/16/17 20:00 98.3 95 18 123/78 96 Nasal Cannula 3.0 I&O Intake and Output 10/16/17 10/17/17 19:00 07:00 Intake Total 1435 ml 1425 ml Output Total 1000 ml 1500 ml Balance 435 ml -75 ml Intake Oral 600 ml IV Total 1435 ml 825 ml Output Urine Total 800 ml 1500 ml Estimated Blood Loss 200 ml Wound: clean, dry Drains: none Neuro Status: normal Vascular Status: normal Additional Comments AP pelvis x-rays postop with equal skeletal leg lengths and offsets/p left hip hemiarthroplasty Assessment Post-op Diagnosis Left hip pathologic femoral neck fracture Procedure Performed left hip hemiarthroplasty Plan Plan: PT, pain management Additional Comments DVT prophylaxis for minimum one month WBAT with no restrictions for PT Cleared for discharge from Ortho perspective when deemed safe by PT and cleared by medicine attending. Follow up in 2 weeks in my office ALFREDO TORRES Oct 17, 2017 18:20
[2017-10-17 20:00] VITALS: BP 142/86
--- NOTE | 2017-10-17 20:32 | General Progress Note ---
Assessment/Plan Assessment/Plan # Multiple myeloma --> requires outpatient followyp, requires treatment, patients can generally do well especially since she is treatment benign --> f/u with oncology, likely will start either RV or RVD (revlimid - velcade - dexamethason) or a similar combination to induce a deep hematologicaly/ cytogenetic/molecular response --> will need zometa as well as outpatient given bony metastasis --> spep is pending and immunoglobulins are generally wnl --> she has [facility] o and has not seen either oncologist yet she has been referred to Joselyn Tinoco and Deny Charles ([facility] public relations writer/ oncologist) # Pathologic left hip fracture s/p repair # Anemia of chronic disease, mild # HTN Subjective Constitutional: Reports: no symptoms HEENT: Reports: no symptoms Cardiovascular: Reports: no symptoms Respiratory: Reports: no symptoms Gastrointestinal/Abdominal: Reports: poor appetite Genitourinary: Reports: no symptoms Neurologic/Psychiatric: Reports: no symptoms Endocrine: Reports: no symptoms Hematologic/Lymphatic: Reports: anemia Allergies: Coded Allergies: No Known Allergies (Unverified , 10/14/17) Subjective no events, s/p left hemiarthroplasty Objective Last 24 Hour Vital Signs Date Time Temp Pulse Resp B/P (MAP) Pulse Ox O2 Delivery O2 Flow Rate FiO2 10/17/17 20:00 99.3 85 20 142/86 92 Room Air 10/17/17 16:00 98.5 86 19 129/78 95 Room Air 10/17/17 12:00 97.8 83 19 144/85 96 Nasal Cannula 2.0 10/17/17 08:20 98.3 83 20 123/74 96 Nasal Cannula 2.0 10/17/17 04:34 98.3 85 17 120/71 96 Nasal Cannula 2.0 10/17/17 00:00 Nasal Cannula 3.0 10/17/17 00:00 98.0 83 18 127/73 96 Nasal Cannula 3.0 Intake and Output 10/16/17 10/17/17 19:00 07:00 Intake Total 1435 ml 1425 ml Output Total 1000 ml 1500 ml Balance 435 ml -75 ml Intake Oral 600 ml IV Total 1435 ml 825 ml Output Urine Total 800 ml 1500 ml Estimated Blood Loss 200 ml Height (Feet): 5 Height (Inches): 8.00 Weight (Pounds): 236 General Appearance: no apparent distress EENT: TMs normal Neck: normal inspection Cardiovascular: normal rate Respiratory/Chest: lungs clear Abdomen: normal bowel sounds Extremities: non-tender Edema: 1+ Leg (L), 1+ Leg (R) Neurologic: no motor/sensory deficits Skin: warm/dry Eros Rodrigues Oct 17, 2017 20:32
[2017-10-18] VITALS: BP 142/89
[2017-10-18 04:00] VITALS: BP 150/85
[2017-10-18] MEDS: Norco 5mg/325mg tab ORAL PRN ×2 (07:52→17:14)
[2017-10-18 08:00] VITALS: BP 145/91
[2017-10-18] MEDS: celeBREX 200mg Cap **SURGERY PATIENTS ONLY ORAL SCH (08:50)
[2017-10-18] MEDS: Docusate 100mg cap ORAL SCH ×3 (08:50→18:00)
[2017-10-18] MEDS: oxyCONTIN 20mg tab ORAL SCH (08:51)
[2017-10-18] MEDS: Enoxaparin 40mg Inj SUBQ SCH (08:52)
[2017-10-18 12:00] VITALS: BP 155/100
--- NOTE | 2017-10-18 13:29 | Cardiac Electrophysiology PN ---
Assessment/Plan Assessment/Plan 1. Status post fall and hip fracture without syncope. This could be pathologic fracture as the patient has possibly multiple myeloma. Patient denies any prior myocardial infarction or coronary artery disease or congestive heart failure. The EKG is completely normal. Tolerated the ORIF well.No cardiac issues 2. Possible MM. Follow uop Dr Soares. Subjective Subjective Comfortable in NAD. No chest pain or SOB. Objective Last 24 Hour Vital Signs Date Time Temp Pulse Resp B/P (MAP) Pulse Ox O2 Delivery O2 Flow Rate FiO2 10/18/17 09:50 97.4 10/18/17 08:51 97.4 10/18/17 08:00 97.4 100 19 145/91 96 10/18/17 08:00 Room Air 10/18/17 04:00 98.5 95 18 150/85 97 Nasal Cannula 1.0 10/18/17 00:30 97 Nasal Cannula 2.0 10/18/17 00:00 98.4 85 17 142/89 92 Room Air 10/17/17 20:00 99.3 85 20 142/86 92 Room Air 10/17/17 16:00 98.5 86 19 129/78 95 Room Air Intake and Output 10/17/17 10/18/17 19:00 07:00 Intake Total 1005 ml Balance 1005 ml Intake Oral 480 ml IV Total 525 ml Objective HEAD AND NECK: no JVD. LUNGS: Clear. CARDIOVASCULAR: Shows regular S1 and S2 with no gallop. ABDOMEN: Soft. EXTREMITIES: No pitting edema. AMBER BRUCE Oct 18, 2017 13:29
[2017-10-18 16:00] VITALS: BP 146/92
--- NOTE | 2017-10-18 17:30 | History and Physical Report ---
DATE OF ADMISSION: 10/14/2017 INTERNAL MEDICINE HISTORY AND PHYSICAL REASON FOR ADMISSION: Left hip fracture. HISTORY OF PRESENT ILLNESS: The patient is a pleasant 57-year-old [place] Islander speaking female. She has a past medical history significant for chronic left hip pain since July, says she fell, has had several tests done and evaluation of her bones, has a history of multiple myeloma. The patient has not seen an oncologist. She says she has had chronic pain including fracture, severe pain. She has been taking Motrin and Tylenol. Today, she fell and landed on her buttocks, now complaining of more pain and standing up, unable to bear weight on the left side, getting morphine. She had a CAT scan performed, which showed a fracture. She has been seen by Orthopedic Surgery to undergo surgery, and Internal Medicine consult was ordered for evaluation and treatment and consulted Cardiology as well for further evaluation. The patient is currently getting consent for the procedure. PAST MEDICAL HISTORY: As noted above. PAST SURGICAL HISTORY: None noted. ALLERGIES: No known drug allergies. MEDICATIONS: None. FAMILY HISTORY: Noncontributory. REVIEW OF SYSTEM: Twelve-point review of systems is otherwise negative. PHYSICAL EXAMINATION: GENERAL: No acute distress. VITAL SIGNS: Reviewed. PULMONARY: Decreased breath sounds. CARDIOVASCULAR: Regular rate. No S3 or S4. ABDOMEN: Soft, nontender, and nondistended. EXTREMITIES: 1+ edema. LABORATORY AND DIAGNOSTIC DATA: WBC 11, hemoglobin 12.3, and platelet count 318,000. BUN 30 and creatinine 1.1. INR is 1. Imaging showing fracture on the left side, femoral neck. ASSESSMENT AND RECOMMENDATIONS: 1. Acute femoral neck fracture. The patient to undergo potential surgery, may be pathological related such as multiple myeloma related. We will continue to closely monitor. . 2. Anemia is very mild, unlikely related to myeloma. 3. RUBIO, likely secondary to dehydration. Continue to closely monitor. 4. Multiple myeloma history. Obtain SPEP testing as well as immunoglobulins. 5. Pain due to fracture. Pain management has been consulted for further evaluation and treatment. 6. Scattered osseous lucency, potentially related to myeloma. Outpatient treatment. I appreciate the consultation. The patient to be seen in the outpatient setting for treatment of multiple myeloma. Generally prognosis can be very good. Eros Adam Rodrigues DR: CATHY JOB#: [id number] CC:
--- NOTE | 2017-10-18 19:48 | General Progress Note ---
Assessment/Plan Assessment/Plan # Multiple myeloma --> requires outpatient followyp, requires treatment, patients can generally do well especially since she is treatment benign --> f/u with oncology, likely will start either RV or RVD (revlimid - velcade - dexamethasone) or a similar combination to induce a deep hematologicaly/ cytogenetic/molecular response --> will need zometa as well as outpatient given bony metastasis --> spep is pending and immunoglobulins are generally wnl --> [facility] and has not seen either oncologist yet she has been referred to Joselyn Tinoco and Deny Charles ([facility] gravity prospector/ oncologist) # Pathologic left hip fracture s/p repair # Anemia of chronic disease, mild # HTN Subjective Constitutional: Denies: no symptoms, chills, diaphoresis, fever, malaise, weakness, other HEENT: Denies: no symptoms, eye pain, blurred vision, tearing, double vision, ear pain, ear discharge, nose pain, nose congestion, throat pain, throat swelling, mouth pain, mouth swelling, other Cardiovascular: Denies: no symptoms, chest pain, edema, irregular heart rate, lightheadedness, palpitations, syncope, other Respiratory: Denies: no symptoms, cough, orthopnea, shortness of breath, SOB with excertion, SOB at rest, sputum, stridor, wheezing, other Gastrointestinal/Abdominal: Denies: no symptoms, abdomen distended, abdominal pain, black stools, tarry stools, blood in stool, constipated, diarrhea, difficulty swallowing, nausea, poor appetite, poor fluid intake, rectal bleeding , vomiting, other Genitourinary: Denies: no symptoms, burning, discharge, frequency, flank pain, hematuria, incontinence, pain, urgency, other Neurologic/Psychiatric: Denies: no symptoms, anxiety, depressed, emotional problems, headache, numbness, paresthesia, pre-existing deficit, seizure, tingling, tremors, weakness, other Endocrine: Denies: no symptoms, excessive sweating, flushing, intolerance to cold, intolerance to heat, increased hunger, increased thirst, increased urine, unexplained weight gain, unexplained weight loss, other Allergies: Coded Allergies: No Known Allergies (Unverified , 10/14/17) Subjective no events, s/p left hemiarthroplasty Objective Last 24 Hour Vital Signs Date Time Temp Pulse Resp B/P (MAP) Pulse Ox O2 Delivery O2 Flow Rate FiO2 10/18/17 18:13 98.1 10/18/17 16:00 98.1 90 19 146/92 95 10/18/17 12:00 97.7 96 18 155/100 95 Room Air 10/18/17 09:50 97.4 10/18/17 08:00 97.4 100 19 145/91 96 10/18/17 08:00 Room Air 10/18/17 04:00 98.5 95 18 150/85 97 Nasal Cannula 1.0 10/18/17 00:30 97 Nasal Cannula 2.0 10/18/17 00:00 98.4 85 17 142/89 92 Room Air 10/17/17 20:00 99.3 85 20 142/86 92 Room Air Intake and Output 10/17/17 10/18/17 19:00 07:00 Intake Total 1005 ml Balance 1005 ml Intake Oral 480 ml IV Total 525 ml Height (Feet): 5 Height (Inches): 8.00 Weight (Pounds): 236 General Appearance: alert EENT: TMs normal Neck: supple Cardiovascular: regular rhythm Respiratory/Chest: lungs clear Abdomen: non tender Extremities: non-tender Edema: no edema noted Leg (L), no edema noted Leg (R) Edema: mild edema Neurologic: alert Skin: warm/dry Eros Rodrigues Oct 18, 2017 19:47
--- NOTE | 2017-10-19 14:45 | Discharge Summary ---
Discharge Summary Hospital Course Date of Admission Oct 14, 2017 at 23:54 Date of Discharge Oct 18, 2017 at 18:15 Admitting Diagnosis femorla neck fx HPI Danisha Nunes is a 57 year old female who was admitted on Oct 14, 2017 at 23:54 for Femorla Neck Fracture Hospital Course dc summary #[id number] Discharge Medications Continued Medications: Hydrocodone Bit/Acetaminophen 5-325* ([place] 5-325*) 1 Each Tablet 1 TAB ORAL PRN for For Pain, TAB 0 Refills Discharge Condition Upon Discharge: stable Discharge Disposition Patient was discharged to Home (01) Discharge Diagnoses: Discharge Instructions Discharge Instructions Special Instructions I have been assigned to complete a D/C Summary on this account. I was not involved in the patient management Pita Nichole NP ([place]) Oct 19, 2017 14:45
--- NOTE | 2017-10-19 22:30 | Discharge Summary 2 SIG ---
DATE OF ADMISSION: 10/14/2017 DATE OF DISCHARGE: 10/18/2017 REASON FOR ADMISSION: 57-year-old female presented with left hip and left knee pain after she sustained mechanical fall. The patient reported chronic left hip pain since July. She was worked up and apparently was diagnosed with multiple myeloma as she had been told by her primary care provider. She had not seen oncologist yet. The patient was unable to bear weight on her left side. Denied any numbness and tingling of her extremities. No saddle anesthesia. No urinary retention. Workup in the emergency room revealed elevated blood pressure- 180/99. BUN-35 and creatinine-1.4. Imaging showed acute femoral neck fracture and results were of concern for pathological fracture given history of multiple myeloma. CT of the hip showed a fracture that appeared pathological as there was irregular lytic lesions involving the femoral head and neck. Surgeon was consulted. Patient was medicated for pain and given Zofran without much relief. Patient was subsequently admitted for further management with diagnosis of acute left femoral neck fracture, multiple myeloma, and intractable pain. HOSPITAL COURSE: The patient was admitted. Surgeon seen and evaluated the patient. Requested Cardiology clearance prior to surgery. Hand Flatwork Finisher seen and evaluated the patient. Echocardiogram revealed preserved ejection fraction of 55% to 60% and right ventricular systolic pressure of 27. No evidence of left ventricular hypertrophy. Hand Flatwork Finisher cleared the patient for surgery. The patient subsequently undergone on 10/16/2017 left hip hemiarthroplasty. After the surgery, course of recovery was uneventful. Pain management was provided. The patient was working with physical and occupational therapists. DVT prophylaxis provided. Bowel regimen instituted. The patient was noted to have mild anemia. Anemia workup revealed anemia of chronic disease. Blood pressure was managed with calcium channel luz and was stable prior to discharge. With IV hydration, BUN down to 30 and creatinine down to 1.1. Nephrotoxics were avoided. Renal parameters and electrolytes were closely monitored. The patient needs to follow up with oncologist as outpatient for management of multiple myeloma. The patient also had underlying irregular lucency in the left femoral area suspicious for metastatic neoplasm. The patient was stable for discharge. FINAL DIAGNOSES: 1. Status post mechanical fall without syncope. 2. Acute left femoral neck pathological fracture, 3. Status post left hip hemiarthroplasty, 10/16/2017 . 4. Acute kidney injury secondary to dehydration, resolved. 5. Intractable pain in the left hip secondary to fracture, resolved. 6. Multiple myeloma. 7. Mild anemia of chronic disease. 8. Hypertension. 9. Scattered osseous lucency, concerning for metastatic neoplasm. DISCHARGE MEDICATIONS: See medication reconciliation list. DISCHARGE INSTRUCTIONS: The patient was discharged home. FOLLOWUP: Follow up with the oncologist this week and follow up with the surgeon as advised by surgeon. Eros Rodrigues M.D. I have been assigned to dictate discharge summary on this account and I was not involved in the patient's management. Pita ManzanaresCreedmoor Psychiatric Centerrodolfo N.PAnika DR: NICKI JOB#: [id number] CC: RENETTA
--- NOTE | 2017-10-20 19:00 | Cardiology Report ---
APPROVED REPORT EXAM: Two-dimensional and M-mode echocardiogram with Doppler and color Doppler. INDICATION Pre-Op M-Mode DIMENSIONS IVSd0.8 (0.7-1.1cm)Left Atrium (MM)3.2 (1.6-4.0cm) LVDd5.0 (3.5-5.6cm)Aortic Root2.6 (2.0-3.7cm) PWd0.7 (0.7-1.1cm)Aortic Cusp Exc.2.0 (1.5-2.0cm) LVDs3.3 (2.5-4.0cm) PWs0.9 cm Normal left ventricular chamber size, systolic function and wall motion. Left ventricular ejection fraction estimated to be 55-60%. No evidence of left ventricular hypertrophy. No evidence of pericardial or pleural effusion. All other cardiac chamber sizes are within normal limits. Focal aortic valve sclerosis with adequate cusp excursion. Thickened mitral valve leaflets with normal excursion. Mild mitral annulus and aortic root calcification. Pulmonic valve not well visualized. Normal tricuspid valve structure. IVC is normal in size and collapsible with respiration. A color flow and spectral Doppler study was performed and revealed: No aortic regurgitation. No mitral regurgitation. Mitral diastolic velocities suggest reduced left ventricular relaxation c/w diastolic dysfunction grade 1. Trace tricuspid regurgitation. Tricuspid systolic velocities suggests peak right ventricular systolic pressure of 27mmHg
--- NOTE | 2017-10-26 00:09 | Cardiology Report ---
APPROVED REPORT EKG Measurement Heart [id number] Normal sinus rhythm Normal ECG
== END 2017-10-18 18:15 | disposition home or self-care (01) | DRG 301 ==
LOC: EDBD 20:41 → EMR 21:10 → 3E 23:54 → EDBEDREQ 10-15 00:30
PROC: 0SRB0J9 Replacement of Left Hip Joint with Synthetic Substitute, Cemented, Open Approach (ICD-10-PCS; principal; 2017-10-16 08:00)
DX: S72.002A Fracture of unspecified part of neck of left femur, initial encounter for closed fracture (principal); N17.9 Acute kidney failure, unspecified; C90.00 Multiple myeloma not having achieved remission; C79.89 Secondary malignant neoplasm of other specified sites; E86.0 Dehydration; W01.0XXA Fall on same level from slipping, tripping and stumbling without subsequent striking against object, initial encounter; Y92.89 Other specified places as the place of occurrence of the external cause; D63.8 Anemia in other chronic diseases classified elsewhere; I10 Essential (primary) hypertension
CPT/HCPCS: 36415; 72170; 73502; 80053; 82746; 82784; 83540; 83550; 84165; 84550; 85007; 85025; 85044; 85060; 85610; 85730; 86850; 86900; 86901; 86920; 93005; 93306; 94003; 94150; 99285; J2250; J2405; J2765